=== PATIENT | male | born 1980 | race Caucasian/White ===

== ENCOUNTER 2021-02-15 02:13 | Emergency (ER) | payer OTHER ==
[~2021-02-15] VITALS: Ht 180.3 cm; Wt 121.9 kg
--- NOTE | 2021-02-16 15:07 | EKG ---
[facility] [address] [place], [place] [address] Signed Normal sinus rhythm Normal ECG No previous ECGs available Confirmed by NILDA WASHINGTON DO ([id number]) on 02/16/2021 3:07:03 PM Electronically Signed By: NILDA WASHINGTON DO 02/16/21 1507 PATIENT NAME: MINADARLIN Electrocardiogram DATE OF : 82 PHYSICIAN: INLDA WASHINGTON DO REPORT #: [id number] REPORT IS CONFIDENTIAL AND NOT TO BE RELEASED WITHOUT AUTHORIZATION
== END 2021-02-15 03:20 | disposition home or self-care (01) ==
LOC: ED 02:13
DX: R07.9 Chest pain, unspecified (principal)
CPT/HCPCS: 71045; 80053; 84484; 85025; 93005; 93010; 99285-25